=== PATIENT | male | born 1965 | race Caucasian/White ===

== ENCOUNTER 2021-05-30 08:55 | Observation (INO) ==
[2021-05-30] MEDS ORDERED: SODIUM CHLORIDE 0.9% 1000ML 1,000 ML IV STA (09:34)
[2021-05-30 09:45] LABS: Basophils # (auto) 0.04 K/uL (0-0.2); Basophils % (auto) 0.4 %; Eosinophils # (auto) 0.22 K/uL (0-0.5); Eosinophils % (auto) 2.4 %; Hematocrit (blood only) 49.4 % (42-52); Hemoglobin 17.5 g/dL (14.0-18.0); Immature Granulocytes # (auto) 0.02 K/uL (0.00-0.02); Immature Granulocytes % (auto) 0.2 %; Lymphocytes # (auto) 2.04 K/uL (1.2-3.4); Lymphocytes % (auto) 22.1 %; Mean Corpuscular Hemoglobin 32.2 pg (25-34); Mean Corpuscular Hgb Conc 35.4 g/dL (32-36); Mean Corpuscular Volume 90.8 fL (80-100); Mean Platelet Volume 10.1 fL (7.4-10.4); Monocytes # (auto) 0.79 K/uL (0.11-0.59); Monocytes % (auto) 8.5 %; Neutrophils # (auto) 6.14 K/uL (1.4-6.5); Neutrophils % (auto) 66.4 %; Platelet Count 266 K/uL (130-400); RDW Coefficient of Variation 13.4 % (11.5-14.5); RDW Standard Deviation 44.2 fL (36.4-46.3); Red Blood Count 5.44 M/uL (4.7-6.1); White Blood Count 9.25 K/uL (4.8-10.8)
[2021-05-30 09:53] LABS: BUN Creatinine Ratio 16.5 (10-20); Calcium 9.7 mg/dl (8.5-10.1); Creatinine Clr Calc Pharmacy 77.1 ml/min; Est GFR (African American) 102.6 ml/min; Est GFR (Non-African American) 88.5 ml/min; Potassium 4.3 mmol/L (3.5-5.1)
[2021-05-30 09:56] LABS: Albumin Globulin Ratio 0.9 (0.9-2); Bilirubin,Total 0.6 mg/dl (0.2-1); Globulin 4.3 gm/dl (2.5-4.0); Total Protein 8.3 gm/dl (6.4-8.2)
[2021-05-30] MEDS ORDERED: OPTIRAY 320 100ml IV ONE (10:12)
--- NOTE | 2021-05-30 10:28 | CT Scan Report ---
CT OF THE ABDOMEN AND PELVIS WITH CONTRAST CLINICAL HISTORY: Right lower quadrant abdominal pain. COMPARISON STUDY: CT of the abdomen and pelvis March 11, 2016. TECHNIQUE: Following IV administration of 93 mL of Optiray, axial images of the abdomen and pelvis we re obtained from the lung bases to the proximal femurs. Images were reviewed in the axial, sagittal, and coronal planes. IV contrast was administered without complication. Automated exposure control wa s utilized for the study. A dose lowering technique was utilized adhering to the principles of ALARA . CT DOSE: 384.05 mGy.cm FINDINGS: Lung bases are unremarkable. No pneumatosis, free air or portal venous gas is present. Ther e is probable hepatic steatosis. There are no hepatic lesions. The spleen, adrenal glands and the ryan creas as well as the kidneys are unremarkable. There is no hydronephrosis. There is no biliary or ryan creatic ductal dilatation. There is no evidence for a bowel obstruction. The appendix is mildly dilat ed, measuring 8 mm in caliber. Wall is mildly thickened. There is trace periappendiceal infiltration. There is no free air or abscess. Colonic diverticulosis is noted without evidence for acute divertic ulitis. There is no evidence for a bowel obstruction. No suspicious osseous lesions are identified wi thin visualized skeletal structures. IMPRESSION: Findings suggestive of early acute appendicitis. Mildly dilated appendix with minimal pe riappendiceal infiltration. No free air or abscess. ACT 112: Negative or not required by law. Electronically signed by: Mike Almonte M.D. 05/30/2021 10:27 AM
[2021-05-30 10:41] LABS: Appearance Urine Clear (Clear); Bacteria Urine Automated 4+ (Negative); Bilirubin Urine Negative (Negative); Blood Urine Negative (Negative); Color Urine Yellow; Epithelial Cell Urine Auto 0-5 /lpf (0-5); Glucose Urine UA Negative (Negative); Ketones Urine Negative (Negative); Leukocyte Esterase Urine 3+ (Negative); Nitrite Urine Positive (Negative); Protein Urine Negative (Negative); RBC Urine Automated 0-4 /hpf (0-4); Specific Gravity Urine 1.018 (1.000-1.030); Urobilinogen Urine Negative (Negative); WBC Urine Automated >30 /hpf (0-5)
[2021-05-30] MEDS ORDERED: cefOXitin 2,000 MG/60 ML BAG IV STA (10:52)
--- NOTE | 2021-05-30 11:05 | Surgery Consultation ---
Date of Consultation May 30, 2021 Assessment & Plan (1) Acute abdominal pain in right lower quadrant: (2) Acute appendicitis: pt is a 56 year-old male who presents to ER with one day history RLQ pain, CT scan diagnosis- acute appendicitis, Plan, I recommend to do laparoscopic appendectomy, possible open, D/W benefits, risks nad alternatives of the surgery, the risks- infection, bleeding, injury other organs, abscess, pt and his understood, they agree with the surgery, I answered all questions, pre-op antibiotic, (3) UTI (urinary tract infection): Iv antibiotic to treat UTI, History of Present Illness Reason for Consultation: acute appendicitis Requesting Physician: Yo Garcia MD Attending Physician: Genaro Bee MD History of Present Illness CC: abdominal pain, HPI,: pt is a 56 year-old male who presents to ER with one day history RLQ pain, the pain is 5-6/10, the pain is located at RLQ, some nausea, no vomiting, pt denies fever, no diarrhea, no dysuria, pt had Ct scan at ER-diagnosis- acute appendicitis, Allergies Allergy/AdvReac Type Severity Reaction Status Date / Time No Known Allergies Allergy Unverified 05/30/21 10:03 Home Medications Medication Instructions Recorded Confirmed Type aspirin 81 mg tablet,delayed 81 mg PO HS 05/30/21 05/30/21 History release (Aspirin Low Dose) lisinopril 10 mg tablet 10 mg PO HS 05/30/21 05/30/21 History tamsulosin 0.4 mg capsule 0.4 mg PO HS 05/30/21 05/30/21 History Patient History Social History Smoking Status: Current every day smoker Tobacco Type: Cigarettes Feels Safe at Home: Yes Review of Systems Constitutional: as per Subjective / HPI Eyes: as per Subjective / HPI Respiratory: as per Subjective / HPI Cardiovascular: as per Subjective / HPI Additional Comments: HTN Gastrointestinal: as per Subjective / HPI Genitourinary: + as per Subjective / HPI and + problem reported (renal stone) Musculoskeletal: as per Subjective / HPI Neurologic: as per Subjective / HPI Endocrine: as per Subjective / HPI Physical Exam Constitutional: WD/WN, vitals as above Eyes: PERRL, conjunctivae normal, anicteric sclerae Neck: trachea midline, no thyromegaly Respiratory: normal respiratory effort, lungs clear to auscultation Cardiovascular: RRR, no murmur, no edema Gastrointestinal (Abdomen): soft, tenderness at RLQ, no rebound pain, BS +, no distend Musculoskeletal: no cyanosis or clubbing, extremities motor strength 5/5 Skin: no rashes, warm and dry Neurologic: patellar DTR's 2+ bilat, sensation intact Psychiatric: A+Ox3, euthymic affect Results & Data ([facility]) Vital Signs (Past 12 Hours) Vital Signs Temp Pulse Pulse Resp BP BP Pulse Ox 05/30/21 10:42 76 18 154/110 H 98 05/30/21 09:07 36.5 C 98 H 18 130/92 96 Laboratory Results Abnormal lab results 05/30/21 05/30/21 05/30/21 Range/Units 09:15 09:15 10:23 [place] # (Auto) 0.79 H (0.11-0.59) K/uL Sodium 135 L (136-145) mmol/L Glucose 110 H (70-99) mg/dl Total Protein 8.3 H (6.4-8.2) gm/dl Globulin 4.3 H (2.5-4.0) gm/dl Urine Nitrite Positive A (Negative) Ur Leukocyte Esterase 3+ H (Negative) Urine WBC (Auto) >30 H (0-5) /hpf Urine Bacteria (Auto) 4+ H (Negative) Diagnostic Findings CT OF THE ABDOMEN AND PELVIS WITH CONTRAST CLINICAL HISTORY: Right lower quadrant abdominal pain. COMPARISON STUDY: CT of the abdomen and pelvis March 11, 2016. TECHNIQUE: Following IV administration of 93 mL of Optiray, axial images of the abdomen and pelvis were obtained from the lung bases to the proximal femurs. Images were reviewed in the axial, sagittal, and coronal planes. IV contrast was administered without complication. Automated exposure control was utilized for the study. A dose lowering technique was utilized adhering to the principles of ALARA. CT DOSE: 384.05 mGy.cm FINDINGS: Lung bases are unremarkable. No pneumatosis, free air or portal venous gas is present. There is probable hepatic steatosis. There are no hepatic lesions. The spleen, adrenal glands and the pancreas as well as the kidneys are unremarkable. There is no hydronephrosis. There is no biliary or pancreatic ductal dilatation. There is no evidence for a bowel obstruction. The appendix is mildly dilated, measuring 8 mm in caliber. Wall is mildly thickened. There is trace periappendiceal infiltration. There is no free air or abscess. Colonic diverticulosis is noted without evidence for acute diverticulitis. There is no evidence for a bowel obstruction. No suspicious osseous lesions are identified within visualized skeletal structures. IMPRESSION: Findings suggestive of early acute appendicitis. Mildly dilated appendix with minimal periappendiceal infiltration. No free air or abscess.
--- NOTE | 2021-05-30 11:18 | History & Physical Bridge Note ---
Date of Service May 30, 2021 History & Physical Bridge Note I have examined the patient, reviewed the History & Physical and in the interval since the performance of the History & Physical I have noted the following changes of clinical significance: no changes noted
[2021-05-30] MEDS ORDERED: LIDOCAINE 1% LOCAL 20 ML VIAL ONE (11:34)
[2021-05-30] MEDS ORDERED: BUPIVACAINE 0.5 % 5 MG/1 ML MPF 30ML VIAL ONE (11:34)
[2021-05-30] MEDS ORDERED: BACITRACIN OINT 15 GM TUBE ONE (11:34)
[2021-05-30] MEDS ORDERED: fentaNYL citrate 100 MCG/2 ML VIAL ONE (11:40)
[2021-05-30] MEDS ORDERED: MIDAZOLAM HCL 1 MG/ML 2ML VIAL ONE (11:40)
[2021-05-30] MEDS ORDERED: fentaNYL citrate 100 MCG/2 ML VIAL IV PRN (11:44)
[2021-05-30] MEDS ORDERED: LABETALOL HCL IV 5 MG/ML 20ML IV PRN (11:44)
[2021-05-30] MEDS ORDERED: PHENYLEPHRINE 100MCG/ML 5ML SYR IV PRN (11:44)
[2021-05-30] MEDS ORDERED: ONDANSETRON INJ 2 MG/ML 2 ML VIAL IV PRN ×2 (11:44→13:35)
[2021-05-30] MEDS ORDERED: MEPERIDINE HCL 25 MG/ML CARP/VIAL IV PRN (11:44)
[2021-05-30] MEDS ORDERED: ePHEDrine sulfate 50 MG/ML AMP IV PRN (11:44)
[2021-05-30] MEDS ORDERED: ATROPINE SULFATE 0.1 MG/ML 10ML SYR IV PRN (11:44)
[2021-05-30] MEDS ORDERED: HYDROmorphone INJ 1 MG/ML SYRINGE IV PRN ×2 (11:44→14:46)
[2021-05-30] MEDS ORDERED: LACTATED RINGER'S 1,000 ML IV SCH (12:30)
--- NOTE | 2021-05-30 12:33 | Anesthesiology Consultation ---
Date of Service May 30, 2021 Assessment & Plan (1) Encounter for pre-operative examination: Chart Review Chart Review: Acceptable Risk for Surgery and Patient NOT seen in Pre Admission Testing Consults Requested none ASA [id number] Proposed Anesthesia Anesthesia Type: General Risk / Benefits Reviewed With: PT / POA / Parent / Guardian, Accepts Plan and I nformed Consent Obtained History Surgery Operation Date: 05/30/21 10:40 Proposed Procedures p Laparoscopic Appendectomy - Genaro Bee MD Height/Weight Height: 5 ft 3 in Weight: 73.5 kg Allergies Allergy/AdvReac Type Severity Reaction Status Date / Time No Known Allergies Allergy Unverified 05/30/21 10:03 Medications Home Medications Medication Instructions Recorded Confirmed Last Taken aspirin 81 mg tablet,delayed 81 mg PO HS 05/30/21 05/30/21 Unknown release (Aspirin Low Dose) lisinopril 10 mg tablet 10 mg PO HS 05/30/21 05/30/21 Unknown tamsulosin 0.4 mg capsule 0.4 mg PO HS 05/30/21 05/30/21 Unknown Active Medications Generic Name Dose Route Start Last Admin Trade Name Freq PRN Reason Stop Dose Admin Lactated Ringer's 1,000 mls @ 0 mls/hr 05/30/21 12:30 05/30/21 12:30 Lr IV 06/29/21 12:29 15 mls/hr .Q0M OFELIA Administration KVO NPO Date Last Intake of Fluids: 05/30/21 Time Last Intake of Fluids: 07:30 Date Last Intake of Solids: 05/29/21 Time Last Intake of Solids: 20:00 Past Medical History Medical History BPH (benign prostatic hyperplasia) Hypertension Smoker Exercise / Class Metabolic Activity II 4-5 Yardwork/Stairs/Walk up hill Past Anesthesia History No Hx of Anesthesia Complications and No Family Hx of Anesthesia Complications History of PONV No Hx of PONV and No Hx of Motion Sickness Social History Smoking Status: Current every day smoker tobacco type: cigarettes Smoking cigarettes per day: pack Do You Dip or Chew Tobacco: No Hx Alcohol Use: Yes Alcohol type: beer alcohol intake frequency: a few times a week Review of Systems no chest pain or sob, no cough or fever Physical Exam Vital Signs Last Vital Signs Temp 36.9 C 05/30/21 12:05 Pulse 78 05/30/21 12:05 Resp 20 05/30/21 12:05 BP 169/119 H 05/30/21 12:05 Pulse Ox 96 05/30/21 12:05 ENMT Mouth: + edentulous; no TMJ abnormality Thyromental Distance: > or= 3.5 Finger Breadths Mallampati Class: II Neck + facial hair Respiratory normal respiratory effort Auscultation: lungs clear to auscultation bilaterally Cardiovascular Rate/Rhythm: regular rate and regular rhythm Musculoskeletal Spine: normal cervical ROM Neurologic moves all extremities Psychiatric Orientation: alert and oriented x 3 Testing Laboratory Results 05/30/21 09:15 05/30/21 09:15 Urine Color Yellow 05/30/21 10:23 Urine Appearance Clear (Clear) 05/30/21 10:23 Urine pH 7.0 (4.5-7.5) 05/30/21 10:23 Ur Specific [place] 1.018 (1.000-1.030) 05/30/21 10:23 Urine Protein Negative (Negative) 05/30/21 10:23 Urine Glucose (UA) Negative (Negative) 05/30/21 10:23 Urine Ketones Negative (Negative) 05/30/21 10:23 Urine Nitrite Positive (Negative) A 05/30/21 10:23 Ur Leukocyte Esterase 3+ (Negative) H 05/30/21 10:23 Urine WBC (Auto) >30 /hpf (0-5) H 05/30/21 10:23 Urine RBC (Auto) 0-4 /hpf (0-4) 05/30/21 10:23 U Hyaline Cast (Auto) 1-5 /lpf (0-5) 05/30/21 10:23 U Epithel Cells (Auto) 0-5 /lpf (0-5) 05/30/21 10:23 Urine Bacteria (Auto) 4+ (Negative) H 05/30/21 10:23 Electrocardiogram Date: 05/30/21 Findings: + NSR @ (82) Other Testing CT OF THE ABDOMEN AND PELVIS WITH CONTRAST CLINICAL HISTORY: Right lower quadrant abdominal pain. COMPARISON STUDY: CT of the abdomen and pelvis March 11, 2016. TECHNIQUE: Following IV administration of 93 mL of Optiray, axial images of the abdomen and pelvis were obtained from the lung bases to the proximal femurs. Images were reviewed in the axial, sagittal, and coronal planes. IV contrast was administered without complication. Automated exposure control was utilized for the study. A dose lowering technique was utilized adhering to the principles of ALARA. CT DOSE: 384.05 mGy.cm FINDINGS: Lung bases are unremarkable. No pneumatosis, free air or portal venous gas is present. There is probable hepatic steatosis. There are no hepatic lesions. The spleen, adrenal glands and the pancreas as well as the kidneys are unremarkable. There is no hydronephrosis. There is no biliary or pancreatic ductal dilatation. There is no evidence for a bowel obstruction. The appendix is mildly dilated, measuring 8 mm in caliber. Wall is mildly thickened. There is trace periappendiceal infiltration. There is no free air or abscess. Colonic diverticulosis is noted without evidence for acute diverticulitis. There is no evidence for a bowel obstruction. No suspicious osseous lesions are identified within visualized skeletal structures. IMPRESSION: Findings suggestive of early acute appendicitis. Mildly dilated appendix with minimal periappendiceal infiltration. No free air or abscess. ACT 112: Negative or not required by law. Electronically signed by: Mike Almonte M.D. 05/30/2021 10:27 AM Dictated: 05/30/21 1020Transcribed: 05/30/21 1020
[2021-05-30] MEDS ORDERED: DEXAMETHASONE SOD INJ 4 MG/ML VIAL ONE (12:55)
[2021-05-30] MEDS ORDERED: LIDOCAINE 2% 2 ML VIAL/AMP(20MG/ML) INFIL ONE (12:55)
[2021-05-30] MEDS ORDERED: ROCURONIUM BROMIDE 10 MG/ML 5 ML VIAL IV ONE (12:55)
[2021-05-30] MEDS ORDERED: SUCCINYLCHOLINE CHLORIDE 20 MG/ML 10 ML VIAL IV ONE (12:55)
[2021-05-30] MEDS ORDERED: NEOSTIGMINE METHYLSULFATE 1 MG/ML 10ML VIAL ONE (12:55)
[2021-05-30] MEDS ORDERED: ONDANSETRON INJ 2 MG/ML 2 ML VIAL ONE (12:55)
[2021-05-30] MEDS ORDERED: PHENYLEPHRINE 100MCG/ML 5ML SYR ONE (12:55)
[2021-05-30] MEDS ORDERED: PROPOFOL IV EMULSION 10 MG/ML 20 ML VIAL IV ONE (12:55)
[2021-05-30] MEDS ORDERED: GLYCOPYRROLATE 0.2 MG/ML VIAL ONE ×2 (12:55→13:20)
--- NOTE | 2021-05-30 13:29 | Post Operative Brief Note ---
Immediate Post Op Note v1 Date of Surgery May 30, 2021 Pre & Post Diagnosis Operation Date: 05/30/21 10:40 Pre-Op Diagnosis: Right Sided Abdominal Pain, Acute appendicitis Post-Op Diagnosis: Right Sided Abdominal Pain, Acute appendicitis I identified the patient and participated in the time-out.: Yes Procedure Operation Date: 05/30/21 10:40 Actual Procedures p Laparoscopic Appendectomy(Not Applicable) - Genaro Bee MD Surgeon Genaro Bee MD Retail Marketing Coordinator surgical supervisor Estimated Blood Loss 5 Findings Consistent with Post-Op Diagnosis acute appendicitis Fluids 700ml Specimens appendix Anesthesia Type General Complications none Disposition Accompanied Patient To Recovery: Yes
--- NOTE | 2021-05-30 14:01 | Anesthesiology Progress Note ---
Date of Service May 30, 2021 Anesthesia Post Procedure Vital Signs Vital Signs: Temp Pulse Pulse Pulse Resp BP BP 05/30/21 13:55 74 16 125/81 05/30/21 13:45 87 16 130/84 05/30/21 13:36 36.2 C L 82 16 142/84 H 05/30/21 12:05 36.9 C 82 78 20 148/78 H 169/119 H 05/30/21 10:42 76 18 154/110 H 05/30/21 09:07 36.5 C 98 H 18 130/92 Pulse Ox 05/30/21 13:55 93 05/30/21 13:45 95 05/30/21 13:36 98 05/30/21 12:05 96 05/30/21 10:42 98 05/30/21 09:07 96 Transfer of Care Handoff Completed per policy Notes Mental Status: alert / awake / arousable Patient Amnestic to Procedure: Yes Nausea / Vomiting: adequately controlled Pain: adequately controlled Airway Patency, RR, SpO2: stable & adequate BP & HR: stable & adequate Hydration State: stable & adequate Anesthetic Complications: no major complications apparent and Pt Satisfied with anesthetic care
--- NOTE | 2021-05-30 14:04 | Operative Report (OR) ---
DATE OF PROCEDURE: 05/30/2021 PREOPERATIVE DIAGNOSIS: Acute appendicitis. POSTOPERATIVE DIAGNOSIS: Acute appendicitis. OPERATION: Laparoscopic appendectomy. SURGEON: Genaro Bee MD. ANESTHESIA: General. ESTIMATED BLOOD LOSS: About 5 mL. FINDINGS: Acute appendicitis. COMPLICATIONS: None. INDICATIONS FOR THE PROCEDURE: This is a 56-year-old gentleman who presented to ED with acute right lower quadrant pain. The patient had a CT scan diagnosis of acute appendicitis. I recommended to do laparoscopic appendectomy, possible open. I did talk to the patient and the patient's about th e benefit, risk, alternate procedure. I indicated the risks may include, but not limited to, such as bleeding, infection, injury to other organs, abscess, incisional hernia, bowel obstruction. They un derstand. The patient signed informed consent. I answered all questions. DETAILS OF PROCEDURE: After we identified the patient and verified the procedure, we brought the pat ient to the OR, put the patient in the supine position on the OR table. The patient received SCD on bilateral legs to prevent DVT. Also, patient received 2 grams of cefoxitin IV for prophylactic antib iotic. The patient received general anesthesia without difficulty. The abdomen was prepped and drap ed in routine sterile fashion. After timeout, I injected the local anesthesia by using 1% lidocaine mixed with 0.5% Marcaine just above the umbilicus, then I made a small incision just above the umbili cus, opened fascia and opened peritoneum. Under direct vision, put a Michelle trocar in, connected to C O2 to create pneumoperitoneum, flow rate at 6 liters per minute, pressure not more than 14 mmHg. Once we get a nice pneumoperitoneum, we put the camera in and looked around the abdomen, it shows a n ormal finding on the small bowel and large bowel. At this moment, we put another two 5 mm trocars on the left lower quadrant area. Once all trocars in, we mobilized the cecum. Then we found the patien t had an appendix that was enlarged with inflammation around the appendix, confirming the diagnosis o f acute appendicitis. Then, I used the Harmonic to take down the appendiceal and rechecked, no activ e bleeding. Then, I used a 45 mm Endo-KYRIE stapler for transection on the base of the appendix. Reche cked, the staple line intact and no leak, no active bleeding. Then, we removed the appendix through the catch bag. Then, we reinserted the Michelle trocar in, connected to CO2 to create pneumoperitoneum. Again looked a round the abdomen, no active bleeding, no leak from the staple line. Then, we removed all trocars un raghavendra direct vision. No active bleeding from the trocar site. Pneumoperitoneum was released. Then, I closed the umbilical incision fascial layer by using 0 Vicryl [id number] x2, closed subcutaneou s layer by using 2-0 Vicryl interruptedly, closed skin by using 4-0 Vicryl continuous running, closed another two 5 mm trocar sites of skin only by using 4-0 Vicryl. Then, we put the dressing on. The patient tolerated the procedure well. All instrument, needle and sponge counts were correct x2 a t the end of the case. The patient was transferred to the recovery room in stable condition. The sp ecimen was sent to pathology. After the procedure, I did talk to the patient and the patient's about the OR finding and the procedure we did, they understand. Job ID: [id number]
[2021-05-30 14:19] LABS: Basophils # (auto) 0.03 K/uL (0-0.2); Basophils % (auto) 0.4 %; Eosinophils # (auto) 0.23 K/uL (0-0.5); Eosinophils % (auto) 3.1 %; Hematocrit (blood only) 44.3 % (42-52); Hemoglobin 15.1 g/dL (14.0-18.0); Immature Granulocytes # (auto) 0.03 K/uL (0.00-0.02); Immature Granulocytes % (auto) 0.4 %; Lymphocytes # (auto) 1.52 K/uL (1.2-3.4); Lymphocytes % (auto) 20.4 %; Mean Corpuscular Hemoglobin 30.9 pg (25-34); Mean Corpuscular Hgb Conc 34.1 g/dL (32-36); Mean Corpuscular Volume 90.6 fL (80-100); Mean Platelet Volume 9.4 fL (7.4-10.4); Monocytes # (auto) 0.45 K/uL (0.11-0.59); Neutrophils # (auto) 5.19 K/uL (1.4-6.5); Neutrophils % (auto) 69.7 %; Platelet Count 214 K/uL (130-400); RDW Coefficient of Variation 13.3 % (11.5-14.5); RDW Standard Deviation 44.1 fL (36.4-46.3); Red Blood Count 4.89 M/uL (4.7-6.1); White Blood Count 7.45 K/uL (4.8-10.8)
[2021-05-30] MEDS ORDERED: oxyCODONE/ACETAMINOPHEN 5mg/325mg TAB PO PRN (14:46)
--- NOTE | 2021-05-30 15:07 | Electrocardiogram Report ---
Test Reason : Blood Pressure : / mmHG Vent. Rate : 082 BPM Atrial Rate : 082 BPM P-R Int : 112 ms QRS Dur : 090 ms QT Int : 364 ms P-R-T Axes : 055 -27 027 degrees QTc Int : 425 ms Normal sinus rhythm Normal ECG No previous ECGs available Confirmed by Harvinder Sanderson ([id number]) on 05/30/2021 3:07:16 PM Referred By: REFERRED SELF Confirmed By:Harvinder Sanderson
[2021-05-30] MEDS: CIPROFLOXACIN / D5W 400 MG/200 ML BAG IV SCH (15:38)
[2021-05-30] MEDS: LACTATED RINGER'S 1,000 ML IV SCH (15:38)
[2021-05-30] MEDS: metroNIDAZOLE 500 MG/100 ML BAG IV SCH ×2 (15:39→23:03)
--- NOTE | 2021-05-30 17:03 | Emergency Department Note ---
History of Present Illness General Chief complaint: Abdominal Pain Stated complaint: R SIDE SHARP ABDOMINAL PAIN Time Seen by Provider: 05/30/21 09:11 History of Present Illness Maximum Pain Intensity: 3 56-year-old male who presents to the emergency department with complaint of right lower quadrant abdominal pain that has been progressively worsening since yesterday morning. The patient reports that the pain initially went all the way across the abdomen, but is now focused toward the right lower quadrant region. The patient has had nausea without vomiting. He also denies any fever or chills, urinary symptoms or back pain. The pain is worsened with sitting or ambulation. 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 He presents for further evaluation, rating his discomfort a 3 out of 10. Home Medications Medication Instructions Recorded Confirmed Type aspirin 81 mg tablet,delayed 81 mg PO HS 05/30/21 05/30/21 History release (Aspirin Low Dose) lisinopril 10 mg tablet 10 mg PO HS 05/30/21 05/30/21 History tamsulosin 0.4 mg capsule 0.4 mg PO HS 05/30/21 05/30/21 History Allergies Allergy/AdvReac Type Severity Reaction Status Date / Time No Known Allergies Allergy Unverified 05/30/21 10:03 Past Med/Surg History Medical History BPH (benign prostatic hyperplasia) Hypertension Smoker Ureteral calculi Surgical History No significant past surgical history Social History Smoking Status: Current every day smoker Tobacco Type: Cigarettes Cigarettes Per Day: pack; Do You Dip or Chew Tobacco: No; Hx Alcohol Use: Yes Alcohol type: beer Feels Safe at Home: Yes Assistive Devices: Glasses Review of Systems 10 system review was performed and was negative except for pertinent positives and negatives as indicated in history of present illness Physical Exam Vital Signs Vital Signs - 24 hr 05/30/21 09:07 05/30/21 10:42 05/30/21 12:05 Temperature 36.5 C 36.9 C Temperature Source Oral Oral Pulse Rate 98 H 82 Pulse Rate [Left Finger] 76 78 Pulse Rhythm [Left Finger] Regular Pulse Strength [Left Finger] Normal Respiratory Rate 18 18 20 Respiratory Effort / Characteristics Non-Labored Spontaneous Non-Labored Respiratory Depth Normal Normal Respiratory Pattern Regular Blood Pressure 130/92 148/78 H Blood Pressure [Left Arm] 154/110 H 169/119 H Blood Pressure Mean 104 Blood Pressure Mean [Left Arm] 124 135 Blood Pressure Position Sitting Blood Pressure Position [Left Arm] Sitting Lying Pulse Oximetry 96 98 96 Oxygen Delivery Method Room Air Room Air Sepsis Recent Fever Within 48 Hours No Sepsis New/Unexplained Change in Mental Status N/A Sepsis Action Taken by Nursing No Action Required CONSTITUTIONAL: Healthy and well nourished. Patient does not appear toxic or in any acute distress. HEENT: Normocephalic, atraumatic. No scleral icterus or conjunctival injection/pallor. NECK: Full active range of motion without discomfort. RESPIRATORY: Clear to auscultation bilaterally with no wheezing, crackles, rhonchi or stridor. CARDIOVASCULAR: Regular rate and rhythm with no murmurs, rubs or gallops. GASTROINTESTINAL: Bowel sounds present in all quadrants. Patient has a positive McBurney's point tenderness with Rovsing sign, heel tap and psoas/obturator sign. Negative CVA tenderness. No abdominal rigidity, guarding or rebound. MUSCULOSKELETAL: Full range of motion of all joints without discomfort. INTEGUMENTARY: No rash or other significant dermatologic conditions noted. HEMATOLOGIC: No ecchymosis or petechiae. PSYCHIATRIC: Positive affect. NEUROLOGIC: No focal neurologic deficits noted. Course Course Patient history and physical exam were performed. Nurses notes were reviewed. Vital signs were reviewed and were normal. IV access was established, and labs were drawn. The patient was hydrated with a liter normal saline. The patient refused any analgesics or antiemetics. Review of labs shows a normal CBC and CMP. Urinalysis shows a positive nitrite, leukocyte esterase and bacteriuria. This was a clean-catch sample. Urine cultures are currently pending. CT with IV contrast of the abdomen and pelvis is consistent with an early appendicitis. COVID-19 PCR test was also performed and was negative. Findings were discussed with the patient. I then discussed the case further with Dr. Bee, general surgeon on-call, who came to the emergency department, and will be taking the patient to the OR for surgical management. Please see his dictation for further treatment and final disposition. I did order Mefoxin 2 g IV infusion while the patient was waiting in the emergency department. The patient refused any further analgesics or antiemetics prior to transfer of care. Administered Medications Lactated Ringer's (Lr) 1,000 mls @ 80 mls/hr IV .[id number] [facility] Stop: 06/29/21 14:45 Last Admin: 05/30/21 15:38 Dose: 80 mls/hr Documented by: [id number] Ciprofloxacin (Cipro / D5w) 400 mg in 200 mls @ 100 mls/hr IV Q12H [facility]; Protocol Stop: 06/09/21 14:59 Last Admin: 05/30/21 15:38 Dose: 100 mls/hr Documented by: [id number] Metronidazole (Flagyl) 500 mg in 100 mls @ 100 mls/hr IV Q8H [facility] Stop: 06/09/21 14:59 Last Admin: 05/30/21 15:39 Dose: 100 mls/hr Documented by: [id number] Discontinued Medications Bacitracin (Bacitracin Oint 15 Gm Tube) Confirm Administered Dose 45 appln .ROUTE .STK-MED ONE Stop: 05/30/21 11:35 Last Admin: 05/30/21 13:12 Dose: 45 appln Documented by: [id number] Bupivacaine HCl (Bupivacaine 0.5 % 5 Mg/1 Ml Mpf 30ml Vial) Confirm Administered Dose 30 ml .ROUTE .STK-MED ONE Stop: 05/30/21 11:35 Last Admin: 05/30/21 13:21 Dose: 20 ml Documented by: [id number] Sodium Chloride (Nss 1000ml) 1,000 mls @ 999 mls/hr IV .Q1H1M [facility] Stop: 05/30/21 10:34 Last Infusion: 05/30/21 15:26 Dose: 0 mls/hr Documented by: [id number] Admin: 05/30/21 09:41 Dose: 999 mls/hr Documented by: [id number] Cefoxitin Sodium (Mefoxin) 2,000 mg in 60 mls @ 100 mls/hr IV NOW STA Stop: 05/30/21 11:27 Last Infusion: 05/30/21 15:26 Dose: 0 mls/hr Documented by: [id number] Admin: 05/30/21 11:02 Dose: 100 mls/hr Documented by: [id number] Lactated Ringer's (Lr) 1,000 mls @ 0 mls/hr IV .Q0M [facility] Stop: 06/29/21 12:29 Last Infusion: 05/30/21 12:35 Dose: 0 mls/hr Documented by: [id number] Admin: 05/30/21 12:30 Dose: 15 mls/hr Documented by: [id number] Ioversol (Optiray 320 100ml) 93 ml IV ONCE ONE Stop: 05/30/21 10:13 Last Admin: 05/30/21 10:12 Dose: 93 ml Documented by: [id number] Lidocaine HCl (Lidocaine 1% Local 20 Ml Vial) Confirm Administered Dose 20 ml .ROUTE .STK-MED ONE Stop: 05/30/21 11:35 Last Admin: 05/30/21 13:21 Dose: 20 ml Documented by: [id number] Medical Decision Making Medical Records Attestation: I reviewed the patient's medical records. Home Medications Current Medication List: was personally reviewed by me Laboratory Data Attestation: I reviewed the patient's lab results. Result diagrams: 05/30/21 14:07 05/30/21 09:15 Lab Results 05/30/21 05/30/21 05/30/21 Range/Units 09:15 09:15 10:23 WBC 9.25 (4.8-10.8) K/uL RBC 5.44 (4.7-6.1) M/uL Hgb 17.5 (14.0-18.0) g/dL Hct 49.4 (42-52) % MCV 90.8 (80-100) fL MCH 32.2 (25-34) pg MCHC 35.4 (32-36) g/dL RDW Std Deviation 44.2 (36.4-46.3) fL RDW Coeff of Sa[place] 13.4 (11.5-14.5) % Plt Count 266 (130-400) K/uL MPV 10.1 (7.4-10.4) fL Immature Gran % (Auto) 0.2 % Neut % (Auto) 66.4 % Lymph % (Auto) 22.1 % [place] % (Auto) 8.5 % Eos % (Auto) 2.4 % Baso % (Auto) 0.4 % Neut # (Auto) 6.14 (1.4-6.5) K/uL Lymph # (Auto) 2.04 (1.2-3.4) K/uL [place] # (Auto) 0.79 H (0.11-0.59) K/uL Eos # (Auto) 0.22 (0-0.5) K/uL Baso # (Auto) 0.04 (0-0.2) K/uL Immature Gran # (Auto) 0.02 (0.00-0.02) K/uL Sodium 135 L (136-145) mmol/L Potassium 4.3 (3.5-5.1) mmol/L Chloride 104 (98-107) mmol/L Carbon Dioxide 27 (21-32) mmol/L Anion Gap 5.0 (3-11) BUN 16 (7-18) mg/dl Creatinine 0.95 (0.6-1.4) mg/dl Est Cr Clr Drug Dosing 77.1 ml/min Est GFR ( Amer) 102.6 ml/min Est GFR (Non-Af Amer) 88.5 ml/min BUN/Creatinine Ratio 16.5 (10-20) Glucose 110 H (70-99) mg/dl Calcium 9.7 (8.5-10.1) mg/dl Total Bilirubin 0.6 (0.2-1) mg/dl AST 21 (15-37) U/L ALT 33 (12-78) U/L Alkaline Phosphatase 90 (45-117) U/L Total Protein 8.3 H (6.4-8.2) gm/dl Albumin 4.0 (3.4-5.0) gm/dl Globulin 4.3 H (2.5-4.0) gm/dl Albumin/Globulin Ratio 0.9 (0.9-2) Lipase 154 (73-393) U/L Urine Color Yellow Urine Appearance Clear (Clear) Urine pH 7.0 (4.5-7.5) Ur Specific [place] 1.018 (1.000-1.030) Urine Protein Negative (Negative) Urine Glucose (UA) Negative (Negative) Urine Ketones Negative (Negative) Urine Blood Negative (Negative) Urine Nitrite Positive A (Negative) Urine Bilirubin Negative (Negative) Urine Urobilinogen Negative (Negative) Ur Leukocyte Esterase 3+ H (Negative) Urine WBC (Auto) >30 H (0-5) /hpf Urine RBC (Auto) 0-4 (0-4) /hpf U Hyaline Cast (Auto) 1-5 (0-5) /lpf U Epithel Cells (Auto) 0-5 (0-5) /lpf Urine Bacteria (Auto) 4+ H (Negative) COVID-19 Eval Order SARS-CoV-2 (PCR) (Negative) 05/30/21 05/30/21 Range/Units 10:45 10:45 WBC (4.8-10.8) K/uL RBC (4.7-6.1) M/uL Hgb (14.0-18.0) g/dL Hct (42-52) % MCV (80-100) fL MCH (25-34) pg MCHC (32-36) g/dL RDW Std Deviation (36.4-46.3) fL RDW Coeff of Saida (11.5-14.5) % Plt Count (130-400) K/uL MPV (7.4-10.4) fL Immature Gran % (Auto) % Neut % (Auto) % Lymph % (Auto) % [place] % (Auto) % Eos % (Auto) % Baso % (Auto) % Neut # (Auto) (1.4-6.5) K/uL Lymph # (Auto) (1.2-3.4) K/uL [place] # (Auto) (0.11-0.59) K/uL Eos # (Auto) (0-0.5) K/uL Baso # (Auto) (0-0.2) K/uL Immature Gran # (Auto) (0.00-0.02) K/uL Sodium (136-145) mmol/L Potassium (3.5-5.1) mmol/L Chloride (98-107) mmol/L Carbon Dioxide (21-32) mmol/L Anion Gap (3-11) BUN (7-18) mg/dl Creatinine (0.6-1.4) mg/dl Est Cr Clr Drug Dosing ml/min Est GFR ( Amer) ml/min Est GFR (Non-Af Amer) ml/min BUN/Creatinine Ratio (10-20) Glucose (70-99) mg/dl Calcium (8.5-10.1) mg/dl Total Bilirubin (0.2-1) mg/dl AST (15-37) U/L ALT (12-78) U/L Alkaline Phosphatase (45-117) U/L Total Protein (6.4-8.2) gm/dl Albumin (3.4-5.0) gm/dl Globulin (2.5-4.0) gm/dl Albumin/Globulin Ratio (0.9-2) Lipase (73-393) U/L Urine Color Urine Appearance (Clear) Urine pH (4.5-7.5) Ur Specific [place] (1.000-1.030) Urine Protein (Negative) Urine Glucose (UA) (Negative) Urine Ketones (Negative) Urine Blood (Negative) Urine Nitrite (Negative) Urine Bilirubin (Negative) Urine Urobilinogen (Negative) Ur Leukocyte Esterase (Negative) Urine WBC (Auto) (0-5) /hpf Urine RBC (Auto) (0-4) /hpf U Hyaline Cast (Auto) (0-5) /lpf U Epithel Cells (Auto) (0-5) /lpf Urine Bacteria (Auto) (Negative) COVID-19 Eval Order Covid19 at [facility] SARS-CoV-2 (PCR) NEGATIVE (Negative) Imaging Data Attestation: I personally reviewed and interpreted this imaging study as follows: My Impression: My interpretation of a CT with IV contrast of the abdomen and pelvis shows evidence for an uncomplicated appendicitis. No evidence for diverticulitis, bowel obstruction or free air appreciated. Radiologist report was also reviewed. Radiologist's Impression: Abdomen/Pelvis CT 05/30/21 09:34 CT OF THE ABDOMEN AND PELVIS WITH CONTRAST CLINICAL HISTORY: Right lower quadrant abdominal pain. COMPARISON STUDY: CT of the abdomen and pelvis March 11, 2016. TECHNIQUE: Following IV administration of 93 mL of Optiray, axial images of the abdomen and pelvis were obtained from the lung bases to the proximal femurs. Images were reviewed in the axial, sagittal, and coronal planes. IV contrast was administered without complication. Automated exposure control was utilized for the study. A dose lowering technique was utilized adhering to the principles of ALARA. CT DOSE: 384.05 mGy.cm FINDINGS: Lung bases are unremarkable. No pneumatosis, free air or portal venous gas is present. There is probable hepatic steatosis. There are no hepatic lesions. The spleen, adrenal glands and the pancreas as well as the kidneys are unremarkable. There is no hydronephrosis. There is no biliary or pancreatic ductal dilatation. There is no evidence for a bowel obstruction. The appendix is mildly dilated, measuring 8 mm in caliber. Wall is mildly thickened. There is trace periappendiceal infiltration. There is no free air or abscess. Colonic diverticulosis is noted without evidence for acute diverticulitis. There is no evidence for a bowel obstruction. No suspicious osseous lesions are identified within visualized skeletal structures. IMPRESSION: Findings suggestive of early acute appendicitis. Mildly dilated appendix with minimal periappendiceal infiltration. No free air or abscess. ACT 112: Negative or not required by law. Electronically signed by: Mike Almonte M.D. 05/30/2021 10:27 AM Blood Pressure Blood Pressure Findings: Normal blood pressure MDM Narrative Patient presents to the emergency department with classic symptoms and physical exam findings of an acute appendicitis, which is confirmed on CT imaging. Fortunately, it is an uncomplicated appendicitis without evidence for abscess or perforation. Additional CT imaging does not show any other acute intra- abdominal etiologies such as diverticulitis, bowel obstruction or free air. Laboratory studies are normal other than a urinalysis consistent with UTI. This will be further addressed by the surgical admission. Laboratory studies are not suggestive of pancreatitis, cholecystitis or hepatitis. The patient is afebrile and has no leukocytosis to suggest overwhelming infection or likelihood of appendiceal perforation. Impression & Plan Acute appendicitis, UTI (urinary tract infection), Right lower quadrant abdominal pain Discharge Plan Visit Data Chief Complaint: Abdominal Pain Stated Complaint: R SIDE SHARP ABDOMINAL PAIN ED Provider: Yo Garcia ED Midlevel Provider: Jesu Ferguson Discharge Problem: Acute appendicitis, UTI (urinary tract infection), Right lower quadrant abdominal pain Discharge Instructions Interventions: ED Discharge Assessment Last Done: 05/30/21 12:05
[2021-05-30] MEDS ORDERED: TAMSULOSIN HCL 0.4 MG CAP PO SCH (21:00)
[2021-05-30] MEDS ORDERED: ASPIRIN 81 MG ECTAB PO SCH (21:00)
[2021-05-30] MEDS ORDERED: lisinopril 10 MG TAB PO SCH (21:00)
[2021-05-31] MEDS: CIPROFLOXACIN / D5W 400 MG/200 ML BAG IV SCH (03:10)
[2021-05-31] MEDS: LACTATED RINGER'S 1,000 ML IV SCH ×2 (04:19→06:12)
[2021-05-31] MEDS: metroNIDAZOLE 500 MG/100 ML BAG IV SCH (06:08)
[2021-05-31 07:51] LABS: Basophils # (auto) 0.01 K/uL (0-0.2); Basophils % (auto) 0.1 %; Hematocrit (blood only) 43.8 % (42-52); Hemoglobin 15.4 g/dL (14.0-18.0); Immature Granulocytes # (auto) 0.04 K/uL (0.00-0.02); Immature Granulocytes % (auto) 0.3 %; Lymphocytes # (auto) 1.39 K/uL (1.2-3.4); Lymphocytes % (auto) 9.3 %; Mean Corpuscular Hemoglobin 31.5 pg (25-34); Mean Corpuscular Hgb Conc 35.2 g/dL (32-36); Mean Corpuscular Volume 89.6 fL (80-100); Mean Platelet Volume 10.1 fL (7.4-10.4); Monocytes # (auto) 0.78 K/uL (0.11-0.59); Monocytes % (auto) 5.2 %; Neutrophils # (auto) 12.76 K/uL (1.4-6.5); Neutrophils % (auto) 85.1 %; Platelet Count 237 K/uL (130-400); RDW Coefficient of Variation 13.2 % (11.5-14.5); RDW Standard Deviation 43.3 fL (36.4-46.3); Red Blood Count 4.89 M/uL (4.7-6.1); White Blood Count 14.98 K/uL (4.8-10.8)
[2021-05-31 07:56] VITALS: BP 115/70; PULSE 82; TEMP 97.7; O2SAT 94
--- NOTE | 2021-05-31 11:37 | Progress Note ---
Date of Service May 31, 2021 Assessment & Plan (1) Acute abdominal pain in right lower quadrant: (2) Acute appendicitis: Plan: pt is a 56 year-old male who presents to ER with one day history RLQ pain, CT scan diagnosis- acute appendicitis, Plan, I recommend to do laparoscopic appendectomy, possible open, D/W benefits, risks nad alternatives of the surgery, the risks- infection, bleeding, injury other organs, abscess, pt and his understood, they agree with the surgery, I answered all questions, pre-op antibiotic, 05/31/2021 11: 36 AM S/P lap appy, POD 1 doing fine, pt wants to go home, post-op care instruction was given, F/U 2 weeks, Acute appendicitis type: with localized peritonitis Appendicitis abscess presence: without abscess Appendicitis gangrene presence: without gangrene Appendicitis perforation presence: without perforation Qualified Code(s): K35.30 - Acute appendicitis with localized peritonitis, without perforation or gangrene (3) UTI (urinary tract infection): Plan: Iv antibiotic to treat UTI, Admission and Anticipated Discharge Date Admission Date: May 30, 2021 Subjective F/U S/P lap appy, POD 1 doing fine, no abdominal pain, no nausea, no vomiting, no fever, Review of Systems Constitutional: as per Subjective / HPI Eyes: as per Subjective / HPI Respiratory: as per Subjective / HPI Cardiovascular: as per Subjective / HPI Additional Comments: HTN Gastrointestinal: as per Subjective / HPI Genitourinary: + as per Subjective / HPI and + problem reported (renal stone) Musculoskeletal: as per Subjective / HPI Neurologic: as per Subjective / HPI Endocrine: as per Subjective / HPI Physical Exam Constitutional: WD/WN, vitals as above Eyes: PERRL, conjunctivae normal, anicteric sclerae Neck: trachea midline, no thyromegaly Respiratory: normal respiratory effort, lungs clear to auscultation Cardiovascular: RRR, no murmur, no edema Gastrointestinal (Abdomen): soft, mild tenderness at incision site, no rebound pain, no distend, BS+, all incisions intact, no redness, Musculoskeletal: no cyanosis or clubbing, extremities motor strength 5/5 Skin: no rashes, warm and dry Neurologic: patellar DTR's 2+ bilat, sensation intact Psychiatric: A+Ox3, euthymic affect Results & Data ([facility]) Vital Signs (Past 12 Hours) Vital Signs Temp Pulse Resp BP Pulse Ox 05/31/21 07:53 36.5 C 82 16 115/70 94 05/31/21 03:07 36.7 C 101 H 20 117/78 92 Laboratory Results Abnormal lab results 05/30/21 05/31/21 Range/Units 14:07 06:47 WBC 14.98 H (4.8-10.8) K/uL Neut # (Auto) 12.76 H (1.4-6.5) K/uL [place] # (Auto) 0.78 H (0.11-0.59) K/uL Immature Gran # (Auto) 0.03 H 0.04 H (0.00-0.02) K/uL
--- NOTE | 2021-05-31 12:44 | Discharge Summary (DS) ---
DATE OF ADMISSION: 05/30/2021 DATE OF DISCHARGE: 05/31/2021 ADMISSION DIAGNOSIS: Acute appendicitis. DISCHARGE DIAGNOSIS: Acute appendicitis. OPERATION: Laparoscopic appendectomy. SURGEON: Genaro Bee MD. DETAILS OF DISCHARGE SUMMARY: This is a 56-year-old gentleman who presented to ED with acute abdomin al pain. The patient had a CT scan diagnosis of acute appendicitis. I took the patient to the OR, w e did laparoscopic appendectomy. The patient tolerated the procedure well. After the procedure, the patient was transferred to recovery room and later on transferred to regular floor. The patient is doing fine. No significant abdominal pain, no fever and patient tolerated a clear diet. PHYSICAL EXAMINATION: VITAL SIGNS: Temperature is 36.5, respiratory rate 16, heart rate 82, blood pressure 115/70, O2 satu ration 94% on room air. GENERAL: The patient is alert, awake, oriented x3. HEENT: Within normal limitation. NEUROLOGIC: Intact. NECK: No JVD. CHEST: Bilateral lung sounds clear. HEART: Normal S1 and S2. No murmur. ABDOMEN: Soft, no significant tenderness, only mild tenderness around the incision site. No rebound pain. All incisions intact. No redness, no distention, bowel sounds positive. EXTREMITIES: No edema. The patient wanted to go home today. We gave the patient postop care instruction. I will follow up the patient in 2 weeks. The patient understands. Job ID: [id number]
== END 2021-05-31 12:24 | disposition home or self-care (01) ==
LOC: PACUINP 08:55 → ED 08:55 → 3N 14:41